=== PATIENT | female | born 1995 | race Native Hawaiian/Other Pacific Islander ===

== ENCOUNTER 2021-03-09 08:02 | Outpatient (CLI) | payer OTHER ==
[~2021-03-09] VITALS: Ht 167.6 cm; Wt 93.6 kg
[~2021-03-09 08:02] MED LIST: IRON SUCROSE 300 MG in NS 250 ML OVER 90 MIN. IV ONE
[2021-03-09 08:10] VITALS: BP 133/65
[2021-03-09 09:45] VITALS: BP 123/58
[2021-03-09 10:45] VITALS: BP_SYST 117; BP_SYST 62; BP_DIAS 62
[2021-03-09 11:45] VITALS: BP 126/62
[2021-03-09 12:30] VITALS: BP 134/64
== END 2021-03-09 12:30 | disposition home or self-care (01) ==
LOC: M INFU 08:02
PROVIDERS: ATTEND Advanced Practice Midwife
DX: D50.9 Iron deficiency anemia, unspecified (principal)
CPT/HCPCS: 96365; 96366; J1756

== ENCOUNTER 2021-03-11 09:04 | Outpatient (CLI) | payer OTHER ==
[~2021-03-11] VITALS: Ht 167.6 cm; Wt 93.6 kg
[2021-03-11 09:18] VITALS: BP 120/62
[2021-03-11 09:35] VITALS: BP 120/62
[2021-03-11] MEDS ORDERED: PREN1CHW6 PO (10:06)
[2021-03-11 10:30] VITALS: BP 118/79
[2021-03-11 11:30] VITALS: BP 125/64
[2021-03-11 12:45] VITALS: BP 125/66
== END 2021-03-11 12:45 | disposition home or self-care (01) ==
LOC: M INFU 09:04
PROVIDERS: ATTEND Advanced Practice Midwife
DX: D50.9 Iron deficiency anemia, unspecified (principal)
CPT/HCPCS: 96365; 96366; J1756

== ENCOUNTER 2021-03-14 07:03 | Outpatient (CLI) | payer OTHER ==
[~2021-03-14] VITALS: Ht 167.6 cm; Wt 93.6 kg
[~2021-03-14 07:03] MED LIST changes: +PREN1CHW6 PO
[2021-03-14 07:10] VITALS: BP 114/60
[2021-03-14 09:55] VITALS: BP 143/73
== END 2021-03-14 10:00 | disposition home or self-care (01) ==
LOC: M INFU 07:03
PROVIDERS: ATTEND Advanced Practice Midwife
DX: D50.9 Iron deficiency anemia, unspecified (principal)
CPT/HCPCS: 96365; 96366; J1756

== ENCOUNTER 2021-04-09 17:09 | Inpatient (IN) | payer OTHER ==
[~2021-04-09] VITALS: Ht 167.6 cm; Wt 94.8 kg
[2021-04-09] VITALS (9 sets, daily range): BP systolic 110–127; BP diastolic 56–81
[~2021-04-09 17:09] MED LIST changes: -IRON SUCROSE 300 MG in NS 250 ML OVER 90 MIN. IV ONE
--- OUTSIDE RECORDS SUMMARY | 2021-04-09 17:12 | CCD ---
Author Author [facility] Organization [facility] Address Unknown Phone Unavailable Care Team Providers Care Electronic Gluing Machine Operator Name Role Phone Nwogu, U Desean DO Unavailable Unavailable Nwogu, U Desean DO Unavailable Unavailable Nwogu, U Desean DO Unavailable Unavailable Nwogu, U Desean DO Unavailable Unavailable Nwogu, U Desean DO Unavailable Unavailable Nwogu, U Desean DO Unavailable Unavailable Nwogu, U Desean DO Unavailable Unavailable Nwogu, U Desean DO Unavailable Unavailable Nwogu, U Desean DO Unavailable Unavailable Nwogu, U Desean DO Unavailable Unavailable Nwogu, U Desean DO Unavailable Unavailable Nwogu, U Desean DO Unavailable Unavailable Nwogu, U Desean DO Unavailable Unavailable Nwogu, U Desean DO Unavailable Unavailable Nwogu, U Desean DO Unavailable Unavailable Nwogu, U Desean DO Unavailable Unavailable Nwogu, U Desean DO Unavailable Unavailable Nwogu, U Desean DO Unavailable Unavailable Nwogu, U Desean DO Unavailable Unavailable Nwogu, U Desean DO Unavailable Unavailable NON, PHYSICIAN STAFF Unavailable Unavailable Re-disclosure Warning The records that you are about to access may contain information from federally-assisted alcohol or drug abuse programs. If such information is present, then the following federally mandated warning applies: This information has been disclosed to you from records protected by federal confidentiality rules (42 CFR part 2). The federal rules prohibit you from making any further disclosure of this information unless further disclosure is expressly permitted by the written consent of the person to whom it pertains or as otherwise permitted by 42 CFR part 2. A general authorization for the release of medical or other information is NOT sufficient for this purpose. The Federal rules restrict any use of the information to criminally investigate or prosecute any alcohol or drug abuse patient.The records that you are about to access may contain highly sensitive health information, the redisclosure of which is protected by Article 27-F of the [facility] Public Health law. If you continue you may have access to information: Regarding HIV / AIDS; Provided by facilities licensed or operated by the [facility] Office of Mental Health; or Provided by the [facility] Office for People With Developmental Disabilities. If such information is present, then the following [facility] mandated warning applies: This information has been disclosed to you from confidential records which are protected by state law. State law prohibits you from making any further disclosure of this information without the specific written consent of the person to whom it pertains, or as otherwise permitted by law. Any unauthorized further disclosure in violation of state law may result in a fine or residential sentence or both. A general authorization for the release of medical or other information is NOT sufficient authorization for further disc losure. Allergies and Adverse Reactions Type Description Substance Reaction Status Data Source(s ) No Known Allergies No Known Allergies [facility] Encounters Encounter Providers Location Date Indications Data Source(s ) Outpatient Attender: Desean Mccoy DOConsultant: STAFF NON 01/19/2021 07:10:00 AM EDT - 01/19/2021 11:15:00 AM EDT [facility] Patient discharged. Medications No Information Insurance Providers Payer name Policy type / Coverage type Policy ID Covered libertarian ID Covered libertarian's relationship to yeung Policy Yeung Plan Information [facility] [id number] [facility] [id number] [facility] [employer] [id number] SP [id number] [facility] - O/P [id number] Problems, Conditions, and Diagnoses Code Display Name Description Problem Type Effective Dates Data Source(s) [id number] 29 weeks gestation of 29 weeks gestation of Diagnosis 01/19/2021 07:10:00 AM EDT [facility] [id number] Unspecified abdominal pain Unspecified abdominal pain Diagnosis 01/19/2021 07:10:00 AM EDT [facility] [id number] Other specified diseases and conditions complicating puerperium Other specified diseases and conditions complicating puerperium Diagnosis 01/19/2021 07:10:00 AM EDT [facility] Surgeries/Procedures No Information Results ID Date Data Source [id number] 01/19/2021 09:08:00 AM EDT [facility] Name Value Range Interpretation Code Description Data Snow rce(s) Supporting Document(s) [facility] SOURCE R [facility] COLOR yellow NORMAL: Yellow [facility] CLARITY clear NORMAL: Clear [facility] Specific gravity of Urine by Test strip 1.020 1.001 - 1.030 [facility] pH 6 5 - 9 [facility] Glucose [Mass/volume] in Urine by Test strip NORM NORMAL: Negat [facility] Bilirubin.total [Presence] in Urine by Test strip NEG NORMAL: Negative [facility] Ketones [Presence] in Urine by Test strip NEG NORMAL: Negative [facility] Protein [Mass/volume] in Urine by Test strip 15 NORMAL: Negat [facility] Nitrite [Presence] in Urine by Test strip NEG NORMAL: Negative [facility] BLOOD NEG NORMAL: Negative [facility] LEUK EST NEG NORMAL: Negative [facility] Urobilinogen [Mass/volume] in Urine by Test strip NOR less elaine n 1.0 mg/dL [facility] MICROSCOPIC See Below [facility] ital WBC 1 - 3 NORMAL: NONE SEEN [facility] EPITHELIAL FEW NORMAL: NONE SEEN [facility] Bacteria [Presence] in Urine sediment by Light microscopy 2+ MOD NORMAL: NONE SEEN A [facility] Mucus [Presence] in Urine sediment by Light microscopy 1+ NOR MAL: NONE SEEN [facility] Amorphous sediment [Presence] in Urine sediment by Light riri roscopy 1+ NORMAL: NONE SEEN [facility] Procedure Social History No Information Vital Signs ID Date Data Source [id number] 01/21/2021 09:16:41 AM EDT [facility] Name Value Range Interpretation Code Description Data Source(s) Height 67 Inches 067 Inches [facility]
[2021-04-09] MEDS ORDERED: IRON27TA2 PO (17:32)
[2021-04-09] MEDS ORDERED: HOME MED LIST COMPLETE! XX SCH (17:35)
[2021-04-09] MEDS ORDERED: LIDOCAINE 1% MDV 20ML VIAL INFIL PRN (17:35)
[2021-04-09] MEDS ORDERED: OXYTOCIN DRIP 30 UNITS in IV 1 EA IV PRN (17:35)
[2021-04-09] MEDS ORDERED: miSOPROStol 50MCG 1/2 TABLET PO ONE (18:00)
[2021-04-09] MEDS ORDERED: OXYTOCIN DRIP 30 UNITS in IV 1 EA IV SCH (18:20)
[2021-04-09 18:22] LABS: HEMATOCRIT 38.1 % (36.0-47.0); HEMOGLOBIN 11.2 g/dl (12.0-15.5); MEAN CORPUSCULAR HEMOGLOBIN 23.2 pg (27.0-33.0); MEAN CORPUSCULAR HGB CONC 29.4 g/dl (32.0-36.5); MEAN CORPUSCULAR VOLUME 78.9 fl (80.0-96.0); PLATELET COUNT, AUTOMATED 403 10^3/uL (150-450); RED BLOOD COUNT 4.83 10^6/uL (4.00-5.40); WHITE BLOOD COUNT 10.1 10^3/uL (4.0-10.0)
--- NOTE | 2021-04-09 18:36 | HPEPDOC ---
Obstetrical History & Physical General Date of Admission Apr 09, 2021 at 17:09 History of Present Illness 25yo frederick [id number] @41+0 presenting for IOL for LTG. Denies bleeding, cont ractions, LOF, states reassuring FM. Chief Complaint: Induction of labor Information Provided By: Patient Age: 25 : 1 Term: 0 Pre-term: 0 Abortions: 0 Livin Care Care: Other (transfer in at 35wks) Dating Final EDC: Apr 02, 2021 Final EDC for Daily Update: Apr 02, 2021 Final EDC by: LMP LMP: Jun 26, 2020 EGA at Admission: 41 (+0) Antepartum Course Diagnos(e)s gestational anemia, iron infusion Height (inches): 66 Pre- weight (lbs.): 159 Admission Weight (lbs.): 212 Change in Weight (lbs.): 53 Past Medical History Past Obstetrical History : Past Obstetrical History: Primgravida IUSS ANALYST History: No pertinent history Past Medical History Medical History anemia Surgical History: Denies/None Family History Significant Family History: Cancer (mother- ovarian CA, MGM- breast CA) Social History Marital Status: Family situation: Spouse/partner home Abuse Violence Screening Have you been hit/kicked/slapp: No Have you been sexually assault: No Imunizations Tdap status: needs Influenza Status: needs Allergies Coded Allergies: No Known Drug Allergies (Verified Allergy, Unknown, 04/09/21) Medications Scheduled Ferrous Gluconate (Iron) 236 Mg Tablet, 1 TAB PO DAILY Vit37/Iron/Folic Acid (Prenata Chewable Tablet) 1 Each Tab.chew, 1 TAB PO DAILY Physical Examination Physical Examination GENERAL: Alert and oriented times three. BREAST: . ABDOMEN: Gravid and non-tender to touch. FETUS: Is vertex (VTX) by sterile vaginal examination (SVE), fetus is vertex (VTX) by [place]. HEART RATE: Regular rate and rhythm. LUNGS: Clear to auscultation (CTA). EXTREMITIES: No edema. No clonus. Deep tendon reflexes (DTRs) + 2. Laboratory Data 24H LABS Laboratory Tests 2 04/09/21 17:19: Serology Scanned Report Hepatitis B Testing CBC/BMP Pertinent Laboratoy Data Blood Type: O+ RBC Antibody Screen: Negative HIV: Negative Hepatitis B: Negative Rapid Plasma Reagin: Nonreactive Rubella: Immune Varicella: Immune Chlamydia/Gonorrhea: Negative Group B Streptococcus: Negative Glucose Tolerance Test: 134 Vaginal Examination Dilation: 2cm Effacement: 80% Cervical Consistency: Soft Cervical Position: Posterior Presentation: Cephalic presentation Assessment Heart Rate (FHR): 130 Variability: Moderate Accelerations: Positive Decelerations: None Tocometer Contractions: Yes Frequency: irregular Duration: less than 60 seconds Strength: palpated as mild, resting tone palp/soft Multi-drug resistant Organism: No history of MDRO Assessment/Plan Assessment Naun is a 25-year-old (G)1 para (P)0-0-0-0 at 41+0 weeks. Presents to Labor and Delivery (L&D) for IOL. Denies bleeding, LOF, cramping, states reassuring FM. Plan Admit and orient. Vendor Management Consultant and consent. Diet: regular. Group B Streptococcus (GBS) negative. Labs and intravenous (IV) per unit protocol. Counseled on Pitocin and induction of labor (IOL). Lactated Ringers (LR): Bolus 1000 mL, then at 125 mL/hr. Cervical catheter filled to 80/80. NST then may remove monitors during cervical ripening. Consider addition of low dose pitocin with cervical catheter. Anticipate normal spontaneous delivery (). C-S as appropriate. ELLIE WAKEFIELD CNM Apr 09, 2021 18:36
[2021-04-09] MEDS ORDERED: BUTORPHANOL 2 MG/ML INJ (J0595) IV ONE (19:00)
[2021-04-09] MEDS ORDERED: PROMETHAZINE INJ 25 MG/ML VIAL (J2550) IV ONE (19:00)
[2021-04-09] MEDS: LR 1,000 ML IV SCH (21:38)
--- NOTE | 2021-04-09 22:06 | IPNPDOC ---
Obstetrical Progress Note Date of Service Apr 09, 2021 Subjective Pt states feeling some contractions. Objective Vital Signs Date Time Temp Pulse Resp B/P (MAP) Pulse Ox O2 Delivery O2 Flow Rate FiO2 04/09/21 19:09 97.4 86 18 123/71 (88) Assessment Heart Rate (FHR): 140 Variability: Moderate Accelerations: Positive Decelerations: None Heart Rate Tracing: Category I Tocometer Contractions: Yes Frequency: irregular Duration: greater than 60 seconds Strength: palpated as moderate, resting tone palp/soft Sterile Vaginal Examination Cervical Consistency: other (cervical catheter in place) Assessment and Plan Age: 25 : 1 Term: 0 Pre-term: 0 Abortions: 0 Livin EGA at Admission: 41 Status: Reassuring Group B Streptococcus: Negative Anticipate: Vaginal Delivery Additional Comments LR @125 ml/hr, continuous efm x2, initiate pitocin induction per protocol, monitor for change in or maternal status, may have stadol and pitocin ordered PRN pain in early induction, anticipate vaginal delivery. ELLIE WAKEFIELD CNM Apr 09, 2021 22:06
[2021-04-10] VITALS (44 sets, daily range): BP systolic 90–140; BP diastolic 50–89
[2021-04-10] MEDS: LR 1,000 ML IV SCH ×3 (02:20→18:20)
[2021-04-10] MEDS ORDERED: FENTANYL 2MCG/ML ROPIVACAINE 0.2% IN 0.9% NACL 100ML IVBAG As Ordered ONE (04:25)
[2021-04-10] MEDS ORDERED: EPIDURAL/PCA KEYS XX PRN (05:20)
[2021-04-10] MEDS ORDERED: diphenhydrAMINE 50MG/ML VIAL (J1200) IV PRN (05:20)
[2021-04-10] MEDS ORDERED: LACTATED RINGER'S 1000 ML IV PRN (05:20)
[2021-04-10] MEDS ORDERED: EPIDURAL COMMENT XX SCH (05:20)
[2021-04-10] MEDS ORDERED: REFRIGERATOR IV KEYS XX PRN (05:20)
[2021-04-10] MEDS ORDERED: ePHEDrine SULFATE 25 MG/5 ML(5MG/ML) SYRINGE IV PRN (05:20)
[2021-04-10] MEDS ORDERED: NALOXONE INJ 0.4MG/1ML VIAL (J2310 PER 1MG) IV PRN (05:20)
[2021-04-10] MEDS ORDERED: FENTANYL/ROPIVACAINE/NACL BAG 100 ML EPIDURAL SCH (05:20)
[2021-04-10] MEDS ORDERED: ONDANSETRON 4MG/2ML VIAL IV PRN (05:20)
--- NOTE | 2021-04-10 06:53 | IPNPDOC ---
Obstetrical Progress Note Date of Service Apr 10, 2021 Subjective Pt resting comfortably after epidural anesthesia. Objective Vital Signs Date Time Temp Pulse Resp B/P (MAP) Pulse Ox O2 Delivery O2 Flow Rate FiO2 04/10/21 06:25 70 18 101/57 (72) 04/10/21 06:11 98.3 Assessment Heart Rate (FHR): 130 Variability: Moderate Accelerations: Positive Decelerations: None Heart Rate Tracing: Category I Tocometer Contractions: Yes Frequency: every 1-5 min. Duration: greater than 60 seconds Strength: palpated as moderate, resting tone palp/soft Sterile Vaginal Examination Dilation: 6 cm (cervical catheter removed from the vaginal vault) Effacement (%): 90% Station: -2 Cervical Consistency: Soft Cervical Position: Middle Postion/Presentation: Cephalic presentation Assessment and Plan Age: 25 : 1 Term: 0 Pre-term: 0 Abortions: 0 Livin EGA at Admission: 41 Weeks & Days 41+1 Status: Reassuring Group B Streptococcus: Negative Anticipate: Vaginal Delivery Additional Comments Lr @125ml/hr, continuous efm x2, continue pitocin induction and titrate per protocol, monitor for change in or maternal status, anticipate vaginal delivery ELLIE WAKEFIELD CNM Apr 10, 2021 06:53
--- NOTE | 2021-04-10 07:58 | IPNPDOC ---
Obstetrical Progress Note Date of Service Apr 10, 2021 Subjective Stated feeling comfort on epidural anesthesia Objective Vital Signs Date Time Temp Pulse Resp B/P (MAP) Pulse Ox O2 Delivery O2 Flow Rate FiO2 04/10/21 06:55 76 18 90/52 (65) 04/10/21 06:11 98.3 Assessment Heart Rate (FHR): 130 Variability: Moderate Accelerations: Positive Decelerations: Early Heart Rate Tracing: Category II Tocometer Contractions: Yes Frequency: every 1-3 min. Duration: greater than 60 seconds Strength: resting tone palp/soft Sterile Vaginal Examination Dilation: 8 cm (Bloody show seen, AROM with exam, no fluid noted) Effacement (%): 90% Station: -1 Cervical Consistency: Soft Cervical Position: Middle Postion/Presentation: Cephalic presentation Assessment and Plan Age: 25 : 1 Term: 0 Pre-term: 0 Abortions: 0 Livin EGA at Admission: 41 Weeks & Days 41+1 Status: Reassuring Group B Streptococcus: Negative Anticipate: Vaginal Delivery Additional Comments LR @125ml/hr, continue pitocin induction and titrate per protocol, monitor for change in or maternal status, anticipate vaginal delivery. ELLIE WAKEFIELD CNM Apr 10, 2021 07:58
--- NOTE | 2021-04-10 11:07 | IPNPDOC ---
Text Note Date of Service The patient was seen on 04/10/21. NOTE Faipule reports feeling pressure and an urge to push. Chaperoned by RN Cervix: C/C/+1. FHR tracing - Cat I with +accels, +early decels. Ctx regular. Pitocin at 14mU. Will begin pushing efforts. Nghia VS,Emily, I+O VS, Emily, I+O Laboratory Tests 04/09/21 18:13 Vital Signs Date Time Temp Pulse Resp B/P (MAP) Pulse Ox O2 Delivery O2 Flow Rate FiO2 04/10/21 10:27 97.9 63 105/59 (74) 04/10/21 08:02 17 SHINE TORRSE DO Apr 10, 2021 11:07
[2021-04-10] MEDS ORDERED: DIBUCAINE 1% OINTMENT 30GM TOP PRN (12:25)
[2021-04-10] MEDS ORDERED: PROMETHAZINE 25 MG TAB PO PRN (12:25)
[2021-04-10] MEDS ORDERED: ACETAMINOPHEN TAB 650MG DOSE (2X325MG) PO PRN (12:25)
[2021-04-10] MEDS ORDERED: DOCUSATE SODIUM 100MG CAPSULE PO PRN (12:25)
[2021-04-10] MEDS ORDERED: RHOGAM 300 MCG (1500 IU) INJ (J2790) IM SCH (12:25)
[2021-04-10] MEDS ORDERED: METHYLERGONOVINE MALEATE 0.2 MG/ML VIAL (J2210) IM ONE (12:25)
[2021-04-10] MEDS ORDERED: MEASLES,MUMPS,RUBELLA VACCINE INJ (MMR-II) (90707) SC SCH (12:25)
[2021-04-10] MEDS ORDERED: OXYTOCIN DRIP 30 UNITS in IV 1 EA IV SCH (12:25)
[2021-04-10] MEDS ORDERED: IBUPROFEN 800 MG TAB PO PRN (12:25)
[2021-04-10] MEDS ORDERED: ACETAMINOPHEN 500 MG TAB PO PRN (12:25)
[2021-04-10] MEDS ORDERED: IBUPROFEN 600MG TAB PO PRN (12:25)
--- NOTE | 2021-04-10 12:34 | DNPDOC ---
[facility] Delivery Note Delivery Note DATE OF DELIVERY: 10Apr2021 at ~1210 PREDELIVERY DIAGNOSIS: 41+1 weeks gestation and IOL for late term gestation POST DELIVERY DIAGNOSIS: Delivered PROCEDURE: Spontaneous vaginal delivery ACCOUNT CLERK: Dr. Agrawal ANESTHESIA: Epidural ESTIMATED BLOOD LOSS: 400 mL. FINDINGS: 8 pound 5 ounce female infant, Score 9/9 DELIVERY SUMMARY: Naun is a 25 yo G1 now P1 who was admitted for an IOL at 41 weeks for late term gestation. She underwent cervical ripening, then pitocin, received an epidural, and progressed steadily into 2nd stage. She started pushing. With excellent effort her delivered after about 30 minutes of pushing. Presentation was ELBERT with restitution to ROT. There was a left compound hand with delivery. The left anterior shoulder delivered with gentle traction followed easily by the remainder of the body. The infant was dried and stimulated on the field and a bulb suction was used. The baby cried vigorously and was placed on the maternal abdomen. The three vessel cord was then clamped and cut by the FOB after appropriate time delay and under my direction. 3rd stage was completed with gentle traction on the cord and it was productive of an intact placenta. The uterus was initially boggy, and she received 0.2mg IM metherine as well as a pitocin bolus and fundal massage. The uterus then firmed. Inspection of the cervix, vagina, perineum, and labia revealed a judith- clitoral laceration, a first degree vaginal floor laceration, and a left labial laceration. These lacerations were repaired with 3-0 vicryl suture in the usual fashion. There was excellent cosmesis and hemostasis after the repairs. A urinary straight cath was performed which confirmed a patent urethra draining clear yellow urine and no blood at the meatus. The fundus was palpated again and was confirmed to be firm. Sponge, instrument, and needle counts were correct X3. Mother and stable when I left the room. SHINE Quintanilla DO Apr 10, 2021 12:34
[2021-04-11] MEDS: LR 1,000 ML IV SCH ×3 (02:20→18:20)
[2021-04-11 06:01] VITALS: BP 99/53
--- NOTE | 2021-04-11 07:14 | IPNPDOC ---
Progress Note Date of Service: Apr 11, 2021 Progress Note 25 yo G1 now P1 PPD#1 s/p uncomplicated yesterday after being admitted for an IOL for late term on 09Apr2021. No issues overnight. Naun reports feeling well this morning. She is ambulating, voiding with out issue, and tolerating a regular diet. Lochia is minimal. Pain is well controlled. Vitals - VSS, afebrile, normotensive, non tachycardic General - AAOX3, sitting up in bed, pleasant and conversant, NAD Abdomen - Fundus firm at U-1. No fundal tenderness Extremities - No edema UO - appropriate Naun is doing well and is making an appropriate recovery. No issues. Discharge home tomorrow when baby is cleared by peds. All questions answered. Nghia VS, I&O, 24H, Emily Vital Signs/I&O Vital Signs Date Time Temp Pulse Resp B/P (MAP) Pulse Ox O2 Delivery O2 Flow Rate FiO2 04/11/21 06:01 97.9 85 18 99/53 (68) 04/10/21 17:53 98 Room Air I&O- Last 24 Hours up to 6 AM 04/11/21 06:00 Intake Total 4361 ml Output Total 2525 ml Balance 1836 ml Laboratory Data 24H LABS Laboratory Tests 2 04/10/21 09:02: Coronavirus (COVID-19)(PCR) NEGATIVE SHINE TORRES DO Apr 11, 2021 07:14
[2021-04-11] MEDS: PRENATAL VITAMINS CHEWABLE TABLET PO SCH (07:30)
[2021-04-11] MEDS ORDERED: INFLUENZA QUADRIVALENT PF VACCINE 0.5ML SYRINGE IM ONE (15:00)
[2021-04-11 18:00] VITALS: BP 108/57
[2021-04-12] MEDS ORDERED: COLA100C5 PO (03:37)
[2021-04-12] MEDS ORDERED: IBUP-1022 PO (03:37)
[2021-04-12] MEDS ORDERED: ACET1TAB55 PO (03:37)
[2021-04-12 06:00] VITALS: BP 109/64
--- NOTE | 2021-04-12 06:39 | OBDS ---
[facility] Obstetrical Discharge Sum. Obstetrical Discharge Summary Centerless Grinder Tender/Provider: PARTH FLORIAN DO Date: Apr 12, 2021 Time: 03:31 : 1 Term: 1 Pre-term: 0 Abortions: 0 Livin VDRL: Non-Reactive Rh: Positive Rubella: Immune Labor induction of labor for late-term gestation Delivery normal spontaneous vaginal delivery Infant Sex: Female Infant Weight: pounds (8), ounces (5) Anesthesia: Regional Anesthesia A/P, Post Course List any complications Admission diagnosis: induction of labor for late term gestation Discharge diagnosis: normal spontaneous vaginal delivery Condition at Discharge: good Discharge Instructions: Home Activity: as tolerated Diet: regular Medications: at [place] Follow-up: 6 weeks [place] [facility] Other: Day of discharge exam: a&o x3 nonlabored breathing abd nontender, soft fundus firm negative calf tenderness bilaterally declines contraception at this time PARTH FLORIAN DO Apr 12, 2021 03:34
[2021-04-12] MEDS: PRENATAL VITAMINS CHEWABLE TABLET PO SCH (09:00)
== END 2021-04-12 11:24 | disposition home or self-care (01) | DRG 807 ==
LOC: M LDI 17:09 → M OBS 04-10 14:20
PROVIDERS: ADMIT Registered Nurse; ATTEND Obstetrics & Gynecology
PROC: 3E033VJ Introduction of Other Hormone into Peripheral Vein, Percutaneous Approach (ICD-10-PCS; 2021-04-09)
PROC: 10E0XZZ Delivery of Products of Conception, External Approach (ICD-10-PCS; principal; 2021-04-10)
PROC: 0HQ9XZZ Repair Perineum Skin, External Approach (ICD-10-PCS; 2021-04-10)
DX: O48.0 Post-term pregnancy (principal); Z37.0 Single live birth; Z3A.41 41 weeks gestation of pregnancy; O99.02 Anemia complicating childbirth; D64.9 Anemia, unspecified; O32.6XX0 Maternal care for compound presentation, not applicable or unspecified; O70.0 First degree perineal laceration during delivery